=== PATIENT | female | born 1975 | race Caucasian/White ===

== ENCOUNTER 2018-12-31 22:38 | Emergency (ER) | payer MEDICAID ==
--- NOTE | 2019-01-01 01:07 | EDM.PDOC ---
ED HPI GENERAL MEDICAL PROBLEM - General Chief Complaint: Allergic Reaction Stated Complaint: HIVES Time Seen by Provider: 01/01/19 01:00 Source of Information: Reports: Patient History Limitations: Reports: No Limitations - History of Present Illness INITIAL COMMENTS - FREE TEXT/NARRATIVE: 43-year-old female has numerous drug allergies including penicillin, macrolides , and sulfa. She recently finished a prescription for cephalexin ending yesterday and this morning she broke out in a rash. This was a very generalized macular rash which was itchy. She describes it as typical for an allergic reaction. She is not having any difficulty breathing or swallowing and has no history of anaphylaxis. She has been taking some Benadryl without much relief. 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: Other (see below) Other Treatments SOAKERS SUPERVISOR: Benadryl Hands/Feet Pain Score (Numeric/FACES): 4 - Related Data Allergies Allergy/AdvReac Type Severity Reaction Status Date / Time amoxicillin Allergy Rash Verified 01/01/19 00:06 erythromycin base Allergy Hives Verified 01/01/19 00:06 Sulfa (Sulfonamide Allergy Hives Verified 01/01/19 00:06 Antibiotics) Home Meds: Home Meds Gabapentin [Neurontin] 100 mg PO TID 01/01/19 [History] Past Medical History - Infectious Disease History Infectious Disease History: Reports: Chicken Pox Social & Family History - Tobacco Use Smoking Status *Q: Never Smoker Second Hand Smoke Exposure: No - Caffeine Use Caffeine Use: Reports: None - Recreational Drug Use Recreational Drug Use: No ED ROS ALLERGIC REACTION - Review of Systems Review Of Systems: See Below Constitutional: Denies: Fever, Chills, Weakness HEENT: Reports: No Symptoms. Denies: Rhinitis, Throat Swelling Respiratory: Reports: No Symptoms. Denies: Shortness of Breath, Wheezing Cardiovascular: Reports: No Symptoms GI/Abdominal: Reports: No Symptoms Skin: Reports: Rash, Urticaria ED EXAM GENERAL NO PERIP PULSE - Physical Exam Exam: See Below Exam Limited By: No Limitations General Appearance: Alert, No Apparent Distress Ears: Normal External Exam Nose: Normal Inspection Throat/Mouth: Normal Inspection. No: Inflammation Respiratory/Chest: No Respiratory Distress, Lungs Clear, Normal Breath Sounds Skin Exam: Dry, Other (Widespread symmetrical macular rash which blanches to pressure.) Course - Vital Signs Last Recorded V/S: Last Vital Signs Temp 37.8 C 01/01/19 00:23 Pulse 88 01/01/19 00:23 Resp 12 01/01/19 00:23 BP 136/80 01/01/19 00:23 Pulse Ox 100 01/01/19 00:23 Departure - Departure Time of Disposition: 01:10 Disposition: Home, Self-Care 01 Condition: Good Clinical Impression: Urticaria due to drug allergy - Discharge Information *PRESCRIPTION DRUG MONITORING PROGRAM REVIEWED*: No *COPY OF PRESCRIPTION DRUG MONITORING REPORT IN PATIENT MARIELLA: No Instructions: Drug Allergy Referrals: Thelma Peters CNM [Primary Care Provider] - Forms: ED Department Discharge Additional Instructions: Prescription given for prednisone 40 mg daily for 4 days. Also recommended Zantac 150 mg twice daily for the next 4 days. Continue Benadryl every 4 hours as needed for itching. Care Plan Goals: Return if there is any breathing or swallowing difficulties. Follow-up if rash is not resolved in one week.
== END 2019-01-01 01:20 | disposition home or self-care (01) ==
LOC: JP.ED 22:38
DX: L50.0 Allergic urticaria (principal); T36.1X5A Adverse effect of cephalosporins and other beta-lactam antibiotics, initial encounter; Z88.1 Allergy status to other antibiotic agents; Z88.2 Allergy status to sulfonamides
CPT/HCPCS: 99282

== ENCOUNTER 2022-12-29 11:21 | Emergency (ER) | payer MEDICAID ==
[2022-12-29] MEDS ORDERED: Methocarbamol 500 MG Tab PO ONE (12:11)
[2022-12-29] MEDS ORDERED: Ketorolac 30 MG/ML SDV IVPUSH ONE (12:11)
[2022-12-29] MEDS ORDERED: Sodium Chloride 0.9% 10 ML Syringe FLUSH PRN (12:11)
== END 2022-12-29 15:35 | disposition home or self-care (01) ==
LOC: JP.ED 11:21
DX: S39.012A Strain of muscle, fascia and tendon of lower back, initial encounter (principal); M54.41 Lumbago with sciatica, right side; M54.42 Lumbago with sciatica, left side; Z88.1 Allergy status to other antibiotic agents; Z88.2 Allergy status to sulfonamides; X58.XXXA Exposure to other specified factors, initial encounter
CPT/HCPCS: 72158; 96374; 99283; A9270; A9579; J1885; J3490